=== PATIENT | female | born 1980 | race Caucasian/White ===

== ENCOUNTER 2019-05-17 10:22 | Outpatient (CLI) | payer OTHER, SELFPAY ==
--- NOTE | 2019-05-17 10:26 | ECG_ITS ---
Measurements Intervals [place] Rate: 78 P: 40 RI: 164 QRS: 40 QRSD: 101 T: 18 QT: 369 QTc: 422 Interpretive Statements SINUS RHYTHM BORDERLINE R WAVE PROGRESSION, ANTERIOR LEADS BORDERLINE ECG Electronically Signed On 05-17-2019 11:47:51 [facility] [place] by Rodolfo Diop D.O.
== END 2019-05-17 10:23 | disposition home or self-care (01) ==
LOC: ANHSURGERY 10:26
PROVIDERS: PCP Family Medicine; Visit Provider Obstetrics & Gynecology
DX: R10.2 Pelvic and perineal pain (principal); Z87.898 Personal history of other specified conditions; R94.31 Abnormal electrocardiogram [ECG] [EKG]
CPT/HCPCS: 36415; 86850; 86900; 86901; 93005

== ENCOUNTER 2019-05-28 00:33 | Day surgery (SDC) | payer OTHER, SELFPAY ==
[2019-05-16 09:55] VITALS: BMI 26.9
[2019-05-28] VITALS (16 sets, daily range): BP systolic 88–137; BP diastolic 49–74; PULSE 60–90; RESP 10–20; TEMP 36.2–36.8; O2SAT 93–100
[2019-05-28] MEDS: LACTATED RINGERS 1,000 ML 30 ML IV CONT ×3 (10:50→14:47)
--- NOTE | 2019-05-28 11:08 | P.PNAN_ITS ---
Anes - Initial Pre Proc Eval Procedure: Operation Date: 05/28/19 12:00 Proposed Procedures p Total Laparoscopic Assisted Hysterectomy, Bilateral Salpingectomy - Violet Morgan MD Date/Time: 05/28/19 11:08 Surgeon: Violet Morgan MD Pre Op Diagnosis: Menometrorrhagia/Dysmenorrhea/Leiomyoma of Uterus Patient Data Age: 38 Gender: F Height: 5 ft 7 in Weight: 73.5 kg Last Vital Signs Temp 36.4 C 05/28/19 10:35 Pulse 81 05/28/19 10:35 Resp 20 05/28/19 10:35 BP 137/74 05/28/19 10:35 Pulse Ox 100 05/28/19 10:35 Allergies Allergy/AdvReac Type Severity Reaction Status Date / Time No Known Allergies Allergy Unverified 05/28/19 11:02 Home Medications Medication Instructions Recorded Confirmed Type L.acid-L.casei-B.bif-B.jennifer-FOS 1 cap PO DAILY 05/16/19 05/28/19 History [Probiotic Blend] cetirizine [Zyrtec] 10 mg PO DAILY 05/16/19 05/28/19 History gloria extract 1 cap PO DAILY 05/16/19 05/28/19 History polyethylene glycol 3350 [Miralax] 17 g PO DAILY 05/16/19 05/28/19 History Patient hx anesthesia problems: none Family hx anesthesia problems: none Anes - Eval Final PreProcedure Day of Procedure 05/28/19 11:08 Patient weight: overweight Heart: regular rate and rhythm Lungs: clear to auscultation Airway: Mallampati scale class 1 Neurological: alert and oriented Last oral intake: >/= 8 hours ASA classification: II Emergent: no Anesthetic plan: proceed Anesthesia type and monitoring: general ETT and standard monitoring Informed Consent: The patient's anesthetic plan and its attendant risks and benefits were discussed with the patient/family/POA. Questions were solicited an d answers provided to the satisfaction of the patient/family/POA.
--- NOTE | 2019-05-28 11:58 | WPDHPUPDATE1 ---
History and Physical Update Update Date/Time: 05/28/19 11:58 History and Physical has been reviewed, including an updated exam of the patient. There are NO changes in the patient's condition. Risks, benefits, and alternatives have been discussed and questions answered. Patient agrees to proceed with procedure.
[2019-05-28] MEDS: ceFAZolin 2 GM/D5W 50 ML 2 GM/50 ML BAG IVPB (12:07)
[2019-05-28] MEDS: IBUPROFEN IV 800 MG/200 ML 800 MG/200 ML BAG 400 MG IVPB (12:21)
[2019-05-28] MEDS: BUPIVACAINE/EPINEPHRINE 0.5% 30 ML VIAL INFILTRATE (12:38)
--- NOTE | 2019-05-28 14:11 | PM.OP ---
Procedure Note - Brief Procedure Note - Brief Date of procedure: 05/28/19 Pre-op diagnosis: Menometrorrhagia/Dysmenorrhea/Leiomyoma of Uterus Post-op diagnosis: same Procedure performed: TLH/bilateral salpingectomy Anesthesia: GETA Surgeon: Violet Morgan MD Estimated blood loss (mL): 50 Drains: Yes ([place]) Packing: No Pathology: yes Complications: No immediate complications Condition: stable Disposition: PACU Findings: Fibroid uterus, left paratubal cyst, otherwise normal fallopian tubes, normal ovaries, normal appendix
[2019-05-28] MEDS: ONDANSETRON INJ 4 MG/2 ML VIAL IV PUSH (14:39)
[2019-05-28] MEDS: HYDROMORPHONE HCL 1 MG/ML INJ 0.5 MG IV PUSH (15:12)
--- NOTE | 2019-05-28 15:20 | SUR.PHASEI ---
1520 sbar faxed to floor. family updated and sent to room
[2019-05-28] MEDS: DEXTROSE 5%/LACTATED RINGERS 1,000 ML 125 ML IV CONT (17:03)
[2019-05-28] MEDS: METOCLOPRAMIDE HCL INJ 10 MG/2 ML VIAL IV PUSH (17:05)
--- NOTE | 2019-05-28 17:07 | OP_ITS ---
DATE OF PROCEDURE: 05/28/2019 PREOPERATIVE DIAGNOSES: Menorrhagia, leiomyoma, dysmenorrhea. POSTOPERATIVE DIAGNOSES: Menorrhagia, leiomyoma, dysmenorrhea. PROCEDURE PERFORMED: Total laparoscopic hysterectomy, bilateral salpingectomy. ANESTHESIA: General endotracheal tube. ESTIMATED BLOOD LOSS: 50 mL. COMPLICATIONS: None. FINDINGS: Fibroid uterus, left paratubal cyst. Otherwise normal fallopian tubes, normal ovaries, normal appendix and liver. No significant pelvic adhesions. INDICATIONS: 38-year-old, G2, P2, who came to me for consultation due to heavy painful periods. She was found to have fibroids on ultrasound and she had failed medical management, so she opted and signed consent for a total laparoscopic hysterectomy and bilateral salpingectomy. After the risks, benefits, complications, and alternatives were discussed. DESCRIPTION OF PROCEDURE: For the procedure, she was taken to the operating room where general anesthesia was obtained. She was prepared and draped in the normal sterile fashion in the dorsal lithotomy position. Marcaine was injected infraumbilically and a 5 mm skin incision was made in the infraumbilical fold with a scalpel. A 5 mm non-bladed trocar was then placed with the camera in the trocar under direct visualization into the peritoneal cavity. Insufflation was begun and she was placed in Trendelenburg. A 10 mm trocar was then placed in the right lower quadrant under direct visualization. A 5 mm trocar in the left lower quadrant. Inspection of the pelvis revealed the findings as noted above. The right fallopian tube was then clamped, coagulated, and transected using the Harmonic Scalpel. The right round ligament was transected, and then the right utero-ovarian ligament. The bladder flap was then created from the right side and the uterine artery was skeletonized. Attention was then turned to the left side with the left fallopian tube, round ligament and utero-ovarian ligaments were all clamped, coagulated, and transected using the Harmonic Scalpel and the bladder flap was created from the left meeting the flap from the right and the bladder was pushed down further and dissected off sharply. The left uterine artery was skeletonized, clamped, coagulated, and transected with excellent hemostasis visualized. A couple of more bites were taken down the broad ligament to the level of the uterosacral ligament had been reached. The right uterine artery was then clamped, coagulated, and transected and another couple of bites were taken down the broad ligament until the level of the uterosacral ligament had been reached. The uterosacral ligaments were then divided on each side. A sponge stick was placed into the vagina and pressed against the anterior cul-de-sac. A colpotomy incision was made with the Harmonic Scalpel against a sponge stick and then the vagina was circumferentially incised hugging the cervix until the uterus and cervix were free from all the surrounding vaginal tissue. The uterus was pressed down as far as possible into the vaginal canal and then attention was turned to the vagina, where a speculum was placed. The cervix was grasped with a single-tooth tenaculum and the uterus was easily brought through the vagina. A moist blue towel was then placed in the vagina to help pull the pneumoperitoneum. Attention was then turned back to the abdomen. Operative sites were all inspected and found to be hemostatic, so the left fallopian tube was grasped. The mesosalpinx was serially clamped and transected, freeing the fallopian tube from the surrounding tissue and the same procedure was performed on the right fallopian tube and both tubes were sent for pathologic evaluation along with the uterus. All operative sites were irrigated and found to be hemostatic so the vagin
--- NOTE | 2019-05-28 18:57 | PC.NURSE ---
1618 Pt admitted to room 289 per bed from Recovery room after robotic hysterectomy today with Dr. Morgan. Pt awake, responding appropriately; and family present. Pt's VSS and assessment WNL. Oriented to room, staffing and procedures.
--- NOTE | 2019-05-28 19:18 | PC.NURSE ---
1815 Bedside rounds at change of shift; pt states she has been sleeping, and now, feels much better; nausea resolved, and pt states she is hungry.
[2019-05-28] MEDS: ENOXAPARIN 40 MG/0.4 ML SYRINGE SUB-Q (20:03)
[2019-05-28] MEDS: KETOROLAC 30 MG/ML VIAL (*BKC) IV PUSH (20:03)
[2019-05-29 00:15] VITALS: BP 94/59; PULSE 71; RESP 14; TEMP 36.6; O2SAT 98
[2019-05-29 04:10] VITALS: BP 101/55; PULSE 60; RESP 14; TEMP 36.3; O2SAT 99
[2019-05-29 04:42] LABS: Basophils Percent Auto 0.3 % (0.2-1.2); Eosinophils Percent Auto 0.1 % (0-4.4); Hematocrit 34.8 % (37.0-47.0); Hemoglobin 11.5 g/dL (12.0-15.0); Immature Granulocyte Absolute 0.02 K/mm3 (0.00-0.031); Immature Granulocyte Percent A 0.3 % (0-0.5); Lymphocytes Absolute Auto 1.21 K/mm3 (0.9-3.2); Mean Corpuscular Hemoglobin 29.2 pg (26-34); Mean Corpuscular Volume 88.3 fl (80-100); Mean Platelet Volume 8.9 fl (7.4-10.4); Monocytes Absolute Auto 0.6 K/mm3 (0.1-0.6); Monocytes Percent Auto 7.4 % (2.6-8.5); Neutrophils Absolute Auto 5.7 K/mm3 (1.3-6.7); Neutrophils Percent Auto 75.9 % (45.5-73.1); Platelet Count Result 253 k/mm3 (150-375); Red Blood Count 3.94 M/mm3 (4.2-5.4); Red Cell Distribution Width 12.5 % (11.5-14.5); White Blood Count 7.6 K/mm3 (4.5-10.0)
[2019-05-29 04:55] LABS: Blood Urea Nitrogen 9 mg/dL (7-17); Calcium 8.6 mg/dL (8.4-10.2); Carbon Dioxide 24 mmol/L (22-30); Chloride 102 mmol/L (98-107); Estimated CRCL calculation 106 ml/min; Estimated Glomerular Filt Rate > 60; Glucose 95 mg/dL (65-105); Potassium 3.8 mmol/L (3.4-5.0); Sodium 138 mmol/L (137-145)
[2019-05-29] MEDS: IBUPROFEN 600 MG TABLET PO (07:35)
[2019-05-29] MEDS: DOCUSATE SODIUM 100 MG CAPSULE PO (07:36)
--- NOTE | 2019-05-29 07:44 | PM.GYNPNOP ---
[facility] - A/P Postoperative Procedures: Procedures Operation Date: 05/28/19 12:00 Actual Procedures Side Surgeon p Total Laparoscopic Assisted Hysterectomy, Bilateral Salpingectomy Bilateral Violet Morgan MD Postoperative day: 1 (s/p hysterectomy) Postoperative status: doing well Postoperative plan: routine post-op care and discharge (and follow up in office in 1 week) Time Spent With Patient Time: Total time spent is greater than 50% in coordination of care (as documented) at patient's floor/unit and/or counseling patient: Time with patient: less than 15 minutes [facility]- PN:Subj Post-Op Subjective Date/time seen: 05/29/19 07:44 Subjective: patient has no complaints, pain is well controlled and other (Tolerating regular diet. + flatus. Voiding without problems) Exam Const: General: no acute distress Resp: Auscultation: clear to auscultation bilaterally Cardio: Rate: regular rate Rhythm: regular rhythm GI: Inspection: non-distended and incision (Intact without erythema, drainage, or induration) GI Palp: Yes abdominal tenderness (appropriate) and Yes Soft to palpation Extrem: General: no edema [facility] - PN: Obj Data Vital Signs Vital Signs: Vital Signs - 24 hr 05/28/19 10:35 05/28/19 14:10 05/28/19 14:25 Temperature 36.4 C 36.2 C L Pulse Rate 81 90 78 Respiratory Rate 20 18 18 Blood Pressure 137/74 110/64 106/65 Pulse Oximetry 100 100 100 05/28/19 14:40 05/28/19 14:55 05/28/19 15:13 Temperature Pulse Rate 65 63 64 Respiratory Rate 10 L 12 10 L Blood Pressure 107/70 110/68 103/51 L Pulse Oximetry 97 97 96 05/28/19 15:27 05/28/19 15:45 05/28/19 16:06 Temperature Pulse Rate 68 82 83 Respiratory Rate 10 L 16 10 L Blood Pressure 103/73 107/67 103/62 Pulse Oximetry 97 96 95 05/28/19 16:20 05/28/19 17:00 05/28/19 17:15 Temperature 36.6 C Pulse Rate 84 82 69 Respiratory Rate 18 Blood Pressure 113/69 103/60 92/52 L Pulse Oximetry 96 95 93 05/28/19 17:30 05/28/19 18:00 05/28/19 19:00 Temperature Pulse Rate 60 79 79 Respiratory Rate Blood Pressure 88/49 L 100/60 96/58 L Pulse Oximetry 93 95 97 05/28/19 20:15 05/29/19 00:15 05/29/19 04:10 Temperature 36.8 C 36.6 C 36.3 C L Pulse Rate 81 71 60 Respiratory Rate 16 14 14 Blood Pressure 101/69 94/59 L 101/55 L Pulse Oximetry 97 98 99 Intake/Output Intake/Output: Intake & Output 05/26/19 05/27/19 05/28/19 05/29/19 23:59 23:59 23:59 23:59 Intake Total 1664 800 Output Total 300 1050 Balance 1364 -250 Meds/Results Medications: Active Medications Generic Name Dose Route Start Last Admin Trade Name Freq PRN Reason Stop Dose Admin Hydrocodone Bitart/Acetaminophen 1 tab 05/28/19 16:07 05/29/19 07:36 [place] 5-325 Mg PO 1 tab Q3H PRN Administration Pain Rated 5 or Less Hydrocodone Bitart/Acetaminophen 1 tab 05/28/19 16:07 [place] 10-325 Mg PO Q3H PRN Pain Rated 6 or Greater Docusate Sodium 100 mg 05/28/19 17:00 05/29/19 07:36 Colace Capsule PO 100 mg BID AZEB Administration Enoxaparin Sodium 40 mg 05/28/19 20:00 05/28/19 20:03 Lovenox SUB-Q 40 mg DAILY AZEB Administration Ibuprofen 600 mg 05/28/19 16:07 05/29/19 07:35 Motrin PO 600 mg Q6H PRN Administration Cramping Ketorolac Tromethamine 30 mg 05/28/19 16:07 05/28/19 20:03 Toradol Inj IV PUSH 06/02/19 16:08 30 mg Q6H PRN Administration Pain Rated 4-6 Loratadine 10 mg 05/28/19 16:45 05/28/19 18:56 Claritin PO Not Given DAILY [facility] Metoclopramide HCl 10 mg 05/28/19 16:07 05/28/19 17:05 Reglan IV PUSH 10 mg Q6H PRN Administration Nausea Morphine Sulfate 4 mg 05/28/19 16:07 Morphine Sulfate Inj IV PUSH Q4H PRN Pain Rated 7-10 Naloxone HCl 0.1 mg 05/28/19 16:07 Narcan IV PUSH Q2M PRN Respiratory rate less than 10 Ondansetron HCl 4 mg 05/28/19 16:07 Zofran Inj IV PUSH Q6H PRN Nausea Simethicone
--- NOTE | 2019-05-29 07:44 | PM.DS ---
DS: Diagnosis Admitting Diagnosis Admitting Diagnosis: Personal history of other specified conditions Discharge Diagnosis (1) Leiomyoma: Code(s): D21.9 - Benign neoplasm of connective and other soft tissue, unspecified Status: Acute DS: Summary Status at Discharge Functional status at discharge: independent ambulation Overall status at discharge: patient is progressing back to baseline Time Spent with Patient Time attestation: Total time spent providing and/or coordinating discharge services: Time spent: Less than 30 minutes DS: Data Data Completed and Pending Pending studies at discharge: Pending at discharge 05/28/19 13:27 Surgical [PTH] Routine Labs on day of discharge: Labs from last 24 hours 05/29/19 05/29/19 04:20 04:20 WBC 7.6 RBC 3.94 L Hgb 11.5 L Hct 34.8 L MCV 88.3 MCH 29.2 MCHC 33.0 RDW 12.5 Plt Count 253 MPV 8.9 Immature Gran % (Auto) 0.3 Neut % (Auto) 75.9 H Lymph % (Auto) 16.0 L [place] % (Auto) 7.4 Eos % (Auto) 0.1 Baso % (Auto) 0.3 Lymph # (Auto) 1.21 [place] # (Auto) 0.6 Eos # (Auto) 0.0 Baso # (Auto) 0.0 Abs Immat Gran (auto) 0.02 Absolute Neuts (auto) 5.7 Absolute Nucleated RBC 0.0 Nucleated RBC % 0.0 Sodium 138 Potassium 3.8 Chloride 102 Carbon Dioxide 24 BUN 9 Creatinine 0.60 L Estim Creat Clear Calc 106 Estimated GFR > 60 Glucose 95 Calcium 8.6 Discharge Plan Discharge Patient Disposition: Home, Self-Care Follow-up/Referrals: Violet Morgan MD [Physician] - 1 Week Discharge Medications: New hydrocodone-acetaminophen 5-325 mg Tablet 1 tab PO Q3H PRN (Reason: Pain Rated 5 Or Less) Qty: 30 RF: 0 ibuprofen 600 mg Tablet 600 mg PO Q6H PRN (Reason: Cramping) Qty: 60 RF: 0 Continued cetirizine [Zyrtec] 10 mg Tablet 10 mg PO DAILY RF: 0 polyethylene glycol 3350 [Miralax] 17 gram/dose Powder 17 g PO DAILY RF: 0 Probiotic Blend 2 billion cell-50 mg Capsule 1 cap PO DAILY RF: 0 gloria extract 1 cap PO DAILY RF: 0 Quality VTE Prophylaxis VTE prophylaxis: mechanical ordered and pharmacologic ordered
[2019-05-29 08:00] VITALS: BP 98/62; PULSE 83; RESP 18; TEMP 36.6; O2SAT 98
== END 2019-05-29 10:18 | disposition home or self-care (01) ==
LOC: ANHSURGERY 10:00 → ANHOB2 16:35
PROVIDERS: PCP Family Medicine; Visit Provider Obstetrics & Gynecology
PROC: 0UT9FZZ Resection of Uterus, Via Natural or Artificial Opening With Percutaneous Endoscopic Assistance (ICD-10-PCS; CPT 58571; principal; 2019-05-28 12:00)
DX: N92.0 Excessive and frequent menstruation with regular cycle (principal); D25.1 Intramural leiomyoma of uterus; D25.2 Subserosal leiomyoma of uterus; N83.8 Other noninflammatory disorders of ovary, fallopian tube and broad ligament; N94.6 Dysmenorrhea, unspecified
CPT/HCPCS: 58571; 36415; 80048; 85025; 88307; 99199; A9270; J0690; J1100; J1170; J1650; J1741; J1885; J2250; J2405; J2704; J2710; J2765; J3010; J7120; J7121